=== PATIENT | male | born 1990 | race African-American/Black ===

== ENCOUNTER → 2018-10-08 | Outpatient (CLI) | payer BC ==
--- NOTE | 2018-10-09 08:37 | Diagnostic Imaging Report ---
TECHNIQUE: Magnetic resonance imaging of the RIGHT SHOULDER was performed WITHOUT injected contrast. COMPARISON: None available. HISTORY: Right shoulder pain FINDINGS: MUSCLES AND TENDONS: Rotator Cuff: Tendons: Supraspinatus: Intact Infraspinatus: Intact Teres Minor: Intact Subscapularis: Intact Muscles: No focal muscle atrophy. Biceps Tendon: The long head of the biceps tendon is intact and within the intertubercular groove. GLENOHUMERAL JOINT: Glenoid Labrum: No displaced tear. Articular Cartilage: No focal defect. AC JOINT AND ACROMION: Mild hypertrophic degenerative changes of the acromioclavicular joint with reactive edema. The acromion is unremarkable. BONE: No acute fracture. SOFT TISSUES: Mild subacromial subdeltoid bursal fluid. IMPRESSION: Intact rotator cuff. Mild acromioclavicular arthrosis with reactive edema. Signed by: Dr. Jatin Almeida M.D. on 10/09/2018 8:34 AM
== END ==
LOC: MRI 15:21
PROVIDERS: ATTEND Anesthesiology Pain Medicine
DX: M25.511 Pain in right shoulder (principal)